=== PATIENT | female | born 1990 | race Caucasian/White ===

== ENCOUNTER 2021-05-13 00:39 | Emergency (ER) | payer MEDICARE ==
[~2021-05-13] VITALS: Ht 172.7 cm; Wt 136.0 kg
[2021-05-13] MEDS ORDERED: KETOROLAC 30MG/ML VIAL IV STA (01:09)
[2021-05-13] MEDS ORDERED: SODIUM CHLORIDE 0.9% 1,000 ML IV ONE (01:15)
[2021-05-13 01:37] VITALS: BP 140/82
[2021-05-13 01:45] LABS: BASOPHILS % 0.8 % (0.0-2.0); EOSINOPHILS % 1.4 % (0.0-5.0); HEMATOCRIT. 42.1 % (36.0-48.0); LYMPHOCYTES % 18.2 % (20.0-50.0); MEAN CORPUSCULAR VOLUME 87.3 fL (81.0-99.0); MEAN PLATELET VOLUME 8.8 fl (7.4-10.4); MONOCYTES % 11.1 % (2.0-8.0); NEUTROPHILS % 68.5 % (40.0-76.0); PLATELET 367 x1000/uL (130-400); RED BLOOD CELL COUNT 4.82 mill/uL (4.2-5.4); RED CELL DISTRIBUTION WIDTH 15.3 % (11.6-14.6)
[2021-05-13 01:59] LABS: CHLORIDE 100 mEq/L (98-107)
[2021-05-13 02:01] LABS: HCG SCREEN NEGATIVE
[2021-05-13] MEDS ORDERED: POTASSIUM CHLORIDE 20MEQ TABLET SR PO ONE (03:00)
== END 2021-05-13 04:08 | disposition home or self-care (01) ==
LOC: ER 00:39
DX: M79.7 Fibromyalgia (principal); E87.6 Hypokalemia; F32.9 Major depressive disorder, single episode, unspecified; I10 Essential (primary) hypertension
CPT/HCPCS: 36415; 80053; 84703; 85025; 93005; 96361; 96374; 99284; J1885; J7030